=== PATIENT | female | born 2000 | race African-American/Black ===

== ENCOUNTER 2021-12-08 21:43 | Emergency (ER) | payer OTHER ==
[~2021-12-08] VITALS: Ht 157.5 cm; Wt 54.5 kg
[2021-12-08 21:54] VITALS: TEMP 97.4
[2021-12-08] MEDS ORDERED: EPIPEN 2-PAK1 MG/ML IM (23:10)
[2021-12-08 23:34] VITALS: BP 118/73; PULSE 67
== END 2021-12-08 23:43 | disposition home or self-care (01) ==
LOC: COL.ER 21:43
PROVIDERS: Physician Assistant
DX: T78.1XXA Other adverse food reactions, not elsewhere classified, initial encounter (principal); Z91.013 Allergy to seafood
CPT/HCPCS: J2930; J7030

== ENCOUNTER 2022-04-19 09:07 | Emergency (ER) | payer OTHER ==
[~2022-04-19] VITALS: Ht 157.5 cm; Wt 54.5 kg
[~2022-04-19 09:07] MED LIST: EPIPEN 2-PAK1 MG/ML IM
[2022-04-19 09:12] VITALS: TEMP 98.6
[2022-04-19] MEDS ORDERED: MILI 0.25-0.031 EACH PO (09:23)
[2022-04-19] MEDS ORDERED: ROBAXIN 50500 MG/TAB PO (11:40)
[2022-04-19] MEDS ORDERED: NAPROSYN500 MG PO (11:40)
[2022-04-19 14:23] VITALS: BP 112/67; PULSE 64
== END 2022-04-19 12:18 | disposition home or self-care (01) ==
LOC: COL.ER 09:07
DX: S70.01XA Contusion of right hip, initial encounter (principal); V89.2XXA Person injured in unspecified motor-vehicle accident, traffic, initial encounter; Y92.410 Unspecified street and highway as the place of occurrence of the external cause
CPT/HCPCS: J1885